=== PATIENT | female | born 1965 | race Caucasian/White ===

== ENCOUNTER 2022-10-23 21:14 | Emergency (ER) | payer MEDICARE, MEDICAID, SELFPAY ==
--- NOTE | 2022-10-22 21:22 | ECG_ITS ---
Measurements Intervals [place] Rate: 149 P: 46 OK: 123 QRS: -3 QRSD: 86 T: 152 QT: 271 QTc: 427 Interpretive Statements SINUS TACHYCARDIA, POSSIBLE ATRIAL FLUTTER BORDERLINE ST-T WAVE ABNORMALITY- DIFFUSE LEADS BASELINE ARTIFACT- I, II, III, AVR, AVL, AVF, V1-V6 ABNORMAL ECG NO PREVIOUS ECG AVAILABLE FOR COMPARISON Electronically Signed On 10-25-2022 7:58:46 CDT by Faheem Preston D.O.
[2022-10-23] VITALS (33 sets, daily range): BP systolic 79–152; BP diastolic 60–98; PULSE 69–152; RESP 0–50; TEMP 37.2–38.4; O2SAT 98–100
--- NOTE | ~2022-10-23 | XR_ITS ---
EXAMINATION: XR chest 1V portable Exam Date/Time: 10/23/2022 21:21 CDT HISTORY: SOB Comparison: None available. RESULT: Lines, tubes, and devices: None. Lungs and pleura: Patchy subsegmental and lumbar opacities in the right lower lung. Moderate-large r ight pleural effusion. Cardiomediastinal silhouette: Stable. Other: No acute osseous or upper abdominal finding. IMPRESSION: Moderate-large right pleural effusion with right mid and lower lung atelectasis/consolidation. Reviewed, dictated and finalized at location K. IMPRESSION: Moderate-large right pleural effusion with right mid and lower lung atelectasis /consolidation.
--- NOTE | ~2022-10-23 | XR_ITS ---
XR abdomen NG/feed tube insert INDICATION: Evaluate NG tube position. TECHNIQUE: Limited KUB perform for evaluating NG tube . COMPARISON: No prior studies for comparison. FINDINGS: NG tube tip in the stomach. Visualized bowel gas pattern is unremarkable. IMPRESSION: 1: NG tube tip in the stomach. Reviewed, dictated and finalized at location A.
--- NOTE | ~2022-10-23 | XR_ITS ---
XR chest ET placement 10/23/2022 22:21 Indication: Respiratory distress. Procedure: AP portable chest Comparison: 10/23/2022 Findings: Large right pleural effusion. Endotracheal tube tip 2 cm above the frank. There is right-s ided airspace disease which may represent atelectasis, asymmetric edema or pneumonia. NG tube passes into the stomach. Impression: 1: Asymmetric right-sided airspace disease which may represent atelectasis, asymmetric edema and/or p neumonia. 2: Large right pleural effusion. Reviewed, dictated and finalized at location A. Impression: 1: Asymmetric right-sided airspace disease which may represent atelectasis, asy mmetric edema and/or pneumonia. 2: Large right pleural effusion.
--- NOTE | ~2022-10-23 | CT_ITS ---
EXAMINATION: CT chest abdomen pelvis w con DATE: 10/24/2022 08:58 CDT INDICATION: Liver mass TECHNIQUE: Computed tomography (CT) of the chest, abdomen, and pelvis was performed with 100 cc Omnip aque 350 intravenous contrast. The dose-length product was 497.19 mGy-cm. Automated exposure control and iterative reconstruction technique were employed. COMPARISON: None FINDINGS: CHEST CT: There are endotracheal and NG tube present. There is extensive consolidation of the right lower lung, consistent with combination of pneumonia and atelectasis. Small right hydropneumothorax. Prominent right cardiophrenic angle lymph node.. Heart size normal. No significant pericardial effusion. There is left lower lobe consolidation as well, suspicious for pneumonia. There is atherosclerosis of the a nat and coronary arteries. NG tube tip in the stomach. Right-sided central line tip near the cavoatr ial junction. Nonobstructive bowel gas pattern. The spleen, pancreas, adrenal glands and left kidney are unremarkab le. There is a 2.1 cm low-density lesion in the right kidney measuring 28 Hounsfield units. Recommend correlation with ultrasound. There is Hallman catheter present in the bladder. Bladder wall is mildly prominent, likely due to decompression. ABDOMEN/PELVIS CT: There are multiple low-density masses of the liver with peripheral enhancement. One of the masses con tains air-fluid level, consistent with multiloculated abscess within the liver parenchyma. Largest co mponent measures approximately 10.5 x 2.2 x 7.9 cm. IMPRESSION: 1. Bibasilar airspace disease, right greater than left, consistent with pneumonia. 2: Right hydropneumothorax. 3: Multiloculated fluid collection of the liver, one of which contains air-fluid level, consistent wi th complicated liver abscess. Reviewed, dictated and finalized at location A. IMPRESSION: 1. Bibasilar airspace disease, right greater than left, consistent with pneumon ia. 2: Right hydropneumothorax. 3: Multiloculated fluid collection of the liver, one of which contains air-flui d level, consistent with complicated liver abscess.
--- NOTE | ~2022-10-23 | XR_ITS ---
[id number] 10/23/2022 23:55 Indication: Status post thoracentesis. Procedure: AP portable chest Comparison: 10/23/2022 Findings: Endotracheal tube tip 4 cm above the frank. NG tube in the stomach. Right subclavian centr al line tip in the SVC. Improved right pleural effusion postthoracentesis. Mild interstitial edema. N o pneumothorax identified. Impression: 1: No pneumothorax identified post thoracentesis. Decreased size of right pleural effusion. 2: Mild interstitial edema. Reviewed, dictated and finalized at location A. Impression: 1: No pneumothorax identified post thoracentesis. Decreased size of right pleur al effusion. 2: Mild interstitial edema.
[2022-10-23 21:38] LABS: Hematocrit 28.9 % (37.0-47.0); Hemoglobin 8.7 g/dL (12.0-15.0); Mean Corpuscular HGB Conc 30.1 g/dl (32-36); Mean Corpuscular Hemoglobin 25.3 pg (26-34); Mean Platelet Volume 9.3 fl (7.4-10.4); Platelet Count Result 1143 k/mm3 (150-375); Red Blood Count 3.44 M/mm3 (4.2-5.4); Red Cell Distribution Width 20.7 % (11.5-14.5); White Blood Count 30.9 K/mm3 (4.5-10.0)
[2022-10-23 21:48] LABS: INR 1.6; Partial Thromboplastin Time 32.5 SECONDS (22.3-36.8); Prothrombin Time 18.6 Seconds (11.1-14.7)
[2022-10-23] MEDS: ETOMIDATE 20 MG/10 ML AMPUL IV PUSH (21:50)
[2022-10-23] MEDS: ROCURONIUM BROMIDE 50 MG/5 ML VIAL 100 MG IV PUSH (21:51)
[2022-10-23 21:52] LABS: Band Neutrophils Percent 7 % (0-6); Lymphocytes Absolute Manual 3.09 K/mm3 (1.1-4.5); Monocytes Absolute Manual 0.92 K/mm3 (0.1-0.90); Monocytes Percent Manual 3 % (3-9); Neutrophils Absolute Manual 26.88 K/mm3 (1.7-7.2); Neutrophils Percent Manual 80 % (46-73); Platelet Estimate Increased (Adequate); Schistocytes None Seen (NORMAL); Total Cells Counted 100
[2022-10-23 21:53] LABS: Anisocytosis 3+ (NORMAL); Hypochromasia 1+ (NORMAL)
[2022-10-23] MEDS: HYDROmorphone HCL INJ (*CRX) 1 MG/ML SYR IV PUSH (21:56)
[2022-10-23 22:00] LABS: Alanine Aminotransferase 73 U/L (6-35); Albumin Level 3.6 g/dL (3.5-5.1); Alkaline Phosphatase 384 U/L (38-126); Anion Gap 15 mmol/L (8-16); Aspartate Amino Transferase 73 U/L (14-36); Bilirubin,Total 1.2 mg/dL (0.2-1.3); Blood Urea Nitrogen 14 mg/dL (7-17); Calcium 9.2 mg/dL (8.4-10.2); Carbon Dioxide 19 mmol/L (22-30); Chloride 104 mmol/L (98-107); Estimated CRCL calculation 64 ml/min; Estimated Glomerular Filt Rate > 60; Glucose 215 mg/dL (65-110); Lipase 88 U/L (23-300); Magnesium 2.2 mg/dL (1.6-2.3); Potassium 3.6 mmol/L (3.4-5.0); Sodium 138 mmol/L (137-145); Troponin I < 0.012 ng/mL (0.000-0.034)
[2022-10-23] MEDS: SODIUM CHLORIDE 0.9% IV 1,000 ML 999 ML IV CONT (22:01)
[2022-10-23 22:10] LABS: Base Excess ABG -6.3 mEq/l (+/-2.0); Device AMBU BAG; Fractional Inspired Oxygen 100 %; HCO3 ABG 19.1 mEq/l (22.0-26.0); Modified Allen's Test Pass; Oxygen Content ABG 12.6 %vol (16.0-22.0); Oxygen Saturation ABG 99.7 % (95.0-100.0); Oxyhemoglobin 98.4 % THb (90.0-100.0); PO2 FiO2 Ratio Arterial Blood 3.56 %; Site Drawn RIGHT RADIAL; Total Hemoglobin 8.4 g/dL (12.0-18.0)
[2022-10-23 22:31] LABS: NT Pro B Type Natriuretic Pept 819 pg/mL (19.9-100)
[2022-10-23 22:31] LABS: Influenza A QL RT-PCR Negative (Negative); Influenza B QL RT-PCR Negative (Negative); RSV RNA, RT-PCR Negative (Negative); SARS-CoV-2 RNA PCR Negative
[2022-10-23] MEDS: FENTANYL 2,500MCG/NS250ML(*CRX 2,500 MCG/250 ML BAG 10 MCG IV CONT (22:44)
[2022-10-23 22:49] LABS: Appearance Urine Clear (Clear); Bacteria Urine None Seen /hpf; Bilirubin Urine 1+ (Negative); Blood Urine Negative (Negative); Color Urine Dark Yellow (Yellow); Glucose Urine UA Negative (Negative); Ketones Urine Negative (Negative); Leukocyte Esterase Ur Trace LEU/UL (Negative); Nitrate Urine Negative (Negative); Protein Urine 1+ mg/dL (Negative); RBC Urine 0-2 /hpf (0-2); Specific Grav Ur 1.018 (1.001-1.035); Squamous Epithelial Cell Urine Occasional /hpf (Few); WBC Urine 0-5 /hpf; pH Urine 5.5 (5.0-9.0)
[2022-10-23 22:56] LABS: Add Urine Microscopic? YES
[2022-10-23] MEDS: SODIUM CHLORIDE 0.9% IV 1,000 ML 999 ML (23:11)
[2022-10-23] MEDS: CEFEPIME 2 GM/NS 50 ML 2 GM/50 ML BAG IVPB (23:45)
[2022-10-24] VITALS (88 sets, daily range): BP systolic 83–142; BP diastolic 64–94; PULSE 58–124; RESP 15–21; TEMP 35.1–37.1; O2SAT 94–100
--- NOTE | 2022-10-24 00:01 | ED.GENADULT ---
HPI - General Adult General Chief complaint: Shortness of Breath/Dyspnea Stated complaint: respiratory distress Time Seen by Provider: 10/23/22 21:25 History of Present Illness HPI narrative: This is a 57-year-old female presenting to ED for respiratory distress. For the patient's sister Jania the patient has been doing poorly for the last 2 week period. She had recently moved in but has been having decreased oral intake weakness and significant diarrhea on a daily basis. Today the patient had a bowel movement and then afterwards was incredibly short of breath. When EMS arrived she was hypoxic into the 80s. She did not respond to a non-rebreather and she was placed on BiPAP. When she came here she was having 1-2 word dyspnea with respiratory rate 50 and heart rate of 150. She is unable to provide any other information patient has a history of alcoholism and heavy tobacco use. Related Data Allergies Allergy/AdvReac Type Severity Reaction Status Date / Time No Known Allergies Allergy Verified 10/23/22 21:47 [facility] Past Medical History Medical History (Updated 10/25/22 @ 00:01 by Raquel Clemente) ETOH abuse Hypertension Social History Social History (Updated 10/24/22 @ 00:21 by Rodolfo Chino MD) Social History: Positive for alcoholism and heavy tobacco use Exam Narrative: APPEARANCE: patient appears older than her stated age. Head: atraumatic. EYES: EOMI, NOSE: Atraumatic NECK: Trachea midline RESPIRATORY: Respiratory rate of 40 5-50 on BiPAP, accessory muscle use and belly breathing, rhonchi in the left lung and decreased lung sounds on the right lower lobe CARDIOVASCULAR: tachycardic in the 150s with a thready pulse ABDOMINAL: soft nontender no guarding or rebound MUSCULOSKELETAl: No obvious deformities NEURO: Alert. Moving 4/4 extremities SKIN:: pale PSYCHIATRIC: anxious point of care ultrasound showed a hyperdynamic heart. IVC has relatively normal respiratory variation. Moderate size pleural effusion on the right. Incidental finding of large cyst/abscess like masses in the liver. Course Vital Signs Vital signs: Vital Signs Temperature 100.6 F H 10/23/22 21:17 Pulse Rate 150 H 10/23/22 21:17 Respiratory Rate 50 H 10/23/22 21:17 Blood Pressure 147/93 H 10/23/22 21:17 Oxygen Delivery BiPAP 10/23/22 21:17 Temperature 96.3 F L 10/24/22 12:00 Pulse Rate 77 10/24/22 12:02 Respiratory Rate 16 10/24/22 12:02 Blood Pressure 121/81 10/24/22 12:02 Pulse Oximetry 94 10/24/22 12:02 Oxygen Delivery Mechanical Ventilation 10/24/22 09:20 Oxygen Flow Rate 16 10/23/22 21:32 Fraction of Inspired Oxygen 30 10/24/22 09:20 Medical Decision Making MDM Narrative Medical decision making narrative: hospital course: 57-year-old female presenting in florid respiratory distress. very little history outside of alcoholism and 2 weeks of weakness and diarrhea to guide our workup. The patient was intubated as she was breathing 50 times a minute on BiPAP. The patient was intubated. Follow-up x-ray confirmed location 2 but also showed a large pleural effusion on that side. While I was visualizing the fusion with ultrasound I did see a large abscess like mass in the liver. I did a diagnostic and therapeutic thoracentesis and drained over 1 L of purulent material from the right pleural cavity. This was sent to the lab for studies. CT chest abdomen pelvis was ordered and although do not get official reads overnight there is a 10 cm x 10 cm x 13 cm loculated effusion in the liver. the patient has been started on vanco cefepime and Flagyl. A subclavian central line was placed. . Patient got 3 L of normal saline resuscitation. Patient has been placed on waiting list at [facility], [facility]. Patient has been placed on the waiting list at all hospitals. Accepted at [facility] -DDX includes but is not limited to: Sepsis, pneumonia, CHF, COPD, UTI, al
[2022-10-24] MEDS: metroNIDAZOLE 500 MG/ISO 100ML 500 MG/100 ML BAG 100 MG IVPB (00:55)
[2022-10-24 01:44] LABS: Lactic Acid Reflex 5.3 mmol/L (0.7-2.0)
[2022-10-24 01:46] LABS: Troponin I 0.022 ng/mL (0.000-0.034)
[2022-10-24] MEDS: MIDAZOLAM HCL (*CRX) 2 MG/2 ML VIAL IV PUSH ×2 (01:49→11:25)
--- NOTE | 2022-10-24 02:01 | PC.NURSE ---
Lab called to report gram positive cocci on gram stain
[2022-10-24] MEDS: LORazepam INJ (*CRX) 2 MG/ML VIAL (02:58)
--- NOTE | 2022-10-24 03:09 | PC.NURSE ---
Yahaira from [facility] Transfer Line called. Patient has been accepted by DR. NEIL CALDERON to [facility] ICU WAITLIST.
--- NOTE | 2022-10-24 03:13 | PC.NURSE ---
Spoke with Yahaira at [facility] transfrer center for [facility]. Informed that patient has been put on waitlist for ICU bed.
[2022-10-24 03:25] LABS: Reflex Lactic Acid Yes or No Add Lactic
[2022-10-24] MEDS: NOREPINEPHRINE 8 MG/D5W 250 ML 8 MG/250 ML BAG 9.38 MG IV CONT (03:32)
[2022-10-24 03:37] LABS: Alveolar/Arterial O2 Gradient 209.3 mmHg; Base Excess ABG -6.2 mEq/l (+/-2.0); Fractional Inspired Oxygen 60 %; HCO3 ABG 17.3 mEq/l (22.0-26.0); Oxygen Content ABG 7.2 %vol (16.0-22.0); Oxygen Saturation ABG 99.4 % (95.0-100.0); Oxyhemoglobin 97.6 % THb (90.0-100.0); PO2 FiO2 Ratio Arterial Blood 3.18 %; pH ABG 7.457 (7.350-7.450)
[2022-10-24 03:41] LABS: Device VENTILATOR; Modified Allen's Test Pass; Site Drawn RIGHT RADIAL; Total Hemoglobin 4.9 g/dL (12.0-18.0)
[2022-10-24] MEDS: SODIUM CHLORIDE 0.9% IV 1,000 ML 999 ML (03:41)
[2022-10-24 03:42] LABS: Arterial Blood Gas Minute Volume 8.7 LPM; Arterial Blood Gas PEEP 5 cmH2O; Arterial Blood Gas Tidal Volume 487 ml; Arterial Blood Gas Vent Mode CMV; Arterial Blood Gas Ventilator rate 18 /MIN
--- NOTE | 2022-10-24 03:46 | PC.NURSE ---
Hank to Saadia at [facility] Transfer Center. Patient has been accepted to [facility] WAITLIST by DR. SUTTON
[2022-10-24] MEDS: LACTATED RINGERS 1,000 ML 150 ML IV CONT (03:47)
[2022-10-24 03:56] LABS: Appearance Pleural Fluid Cloudy (Clear); Color Pleural Fluid White (Colorless); Pleural fluid source Pleural fluid
[2022-10-24 03:58] LABS: Lymphocytes Pleural Fluid 6 %; Neutrophils Pleural Fluid 94 % (0-25)
[2022-10-24 04:14] LABS: Albumin Level 2.8 g/dL (3.5-5.1); Amylase 47 U/L (30-110); Bilirubin,Total 1.3 mg/dL (0.2-1.3); Cholesterol 107 mg/dL (0-200); Glucose 228 mg/dL (65-110); Lactate Dehydrogenase 168 U/L (120-246); Triglycerides 124 mg/dL (<150)
--- NOTE | 2022-10-24 05:27 | PC.NURSE ---
Gave report to KEVIN Khanna at [facility]
[2022-10-24] MEDS: LORazepam INJ (*CRX) 2 MG/ML VIAL IV PUSH (06:09)
--- NOTE | 2022-10-24 07:31 | PC.NURSE ---
Patient report received from KEVIN Guzman. All questions answered and care of patient assumed. Patient intubated and sedated with blood infusing. VSS. Slightly tachycardic with rate of 110s. BP stable. Temp of 95.2 and MD notified. Kathy torres applied.
[2022-10-24] MEDS: RAPID SEQUENCE INTUBATION KIT 1 EACH (07:44)
[2022-10-24] MEDS: TUBING, BLOOD PLUM PUMP TUBING 1 EACH XX ×2 (07:47→11:28)
[2022-10-24] MEDS: SODIUM CHLORIDE 0.9% IV 250 ML 30 ML IV CONT (08:03)
[2022-10-24] MEDS: LACTATED RINGERS 1,000 ML 150 ML (10:21)
[2022-10-24 10:34] LABS: Lactic Acid Reflex 2.5 mmol/L (0.7-2.0)
[2022-10-24 10:35] LABS: Lactic Acid 2.6 mmol/L (0.7-2.0)
[2022-10-24 10:35] LABS: Estimated CRCL calculation 106 ml/min; Estimated Glomerular Filt Rate > 60
[2022-10-25 07:38] LABS: Nucleated Cell Pleural Fluid 15160 /uL (0-1000); RBC Pleural Fluid 65000 /uL (0-0)
[2022-10-27 12:26] LABS: LDH Pleural Fluid 4988 U/L; Total Protein Pleural Fluid 3.8 g/dL
[2022-10-30 22:50] LABS: Albumin Pleural Fluid 0.8 g/dL
[2022-11-02 17:03] LABS: Amylase, Pleural Fluid <10 U/L
== END 2022-10-24 12:15 | disposition short-term general hospital (02) ==
PROVIDERS: Emergency Provider Emergency Medicine; PCP Internal Medicine
DX: A41.9 Sepsis, unspecified organism (principal); R65.21 Severe sepsis with septic shock; J96.90 Respiratory failure, unspecified, unspecified whether with hypoxia or hypercapnia; J86.9 Pyothorax without fistula; D75.838 Other thrombocytosis; K75.0 Abscess of liver; D64.9 Anemia, unspecified; F10.20 Alcohol dependence, uncomplicated; Z20.822 Contact with and (suspected) exposure to COVID-19; I10 Essential (primary) hypertension; F17.200 Nicotine dependence, unspecified, uncomplicated; Y90.9 Presence of alcohol in blood, level not specified
CPT/HCPCS: 31500; 32554; 36415; 36430; 36556; 36600; 71045; 71260; 74177; 80053; 81001; 82040; 82042; 82150; 82247; 82465; 82565; 82805; 82945; 82947; 83605; 83615; 83690; 83735; 83880; 83986; 84155; 84157; 84311; 84478; 84484; 85025; 85610; 85730; 86850; 86900; 86901; 86920; 86923; 87015; 87040; 87070; 87075; 87076; 87077; 87081; 87102; 87116; 87147; 87181; 87186; 87205; 87206; 87637; 88108; 88184; 88305; 89051; 93005; 96361; 96365; 96366; 96367; 96368; 96375; 96376; 99291; J0131; J0692; J1170; J2060; J2250; J3010; J3370; J7030; J7050; J7120; P9016; Q9967